=== PATIENT | female | born 1995 | race Caucasian/White ===

== ENCOUNTER → 2017-03-28 | Outpatient (CLI) | payer OTHER ==
[2016-03-22 21:45] VITALS: BP 147/97
== END ==
LOC: RAD 12:00
DX: I10 Essential (primary) hypertension (principal)

== ENCOUNTER → 2017-10-18 | Outpatient (CLI) | payer OTHER ==
[2016-03-22 21:45] VITALS: BP 147/97
[2017-10-18 15:08] LABS: HEMATOCRIT 40.8 % (37.0-47.0); HEMOGLOBIN 13.7 g/dL (12.5-16.0); MEAN PLATELET VOLUME 9.7 fl (7.4-10.4); RED BLOOD COUNT 4.81 M/mm3 (4.10-5.30); RED CELL DISTRIBUTION WIDTH 13.4 % (11.5-14.5); WHITE BLOOD COUNT 9.9 K/mm3 (4.8-10.8)
[2017-10-18 15:19] LABS: ALBUMIN 4.8 g/dL (3.5-5.0); BUN/CREATININE RATIO 18.5 (6.0-26.0); CALCIUM 9.4 mg/dL (8.4-10.2); POTASSIUM 3.9 mmol/L (3.6-5.0); TOTAL BILIRUBIN 0.2 mg/dL (0.2-1.3); TOTAL PROTEIN 8.3 g/dL (6.3-8.2)
== END ==
LOC: LAB 14:45
PROVIDERS: Family Medicine
DX: Z00.00 Encounter for general adult medical examination without abnormal findings (principal); E03.9 Hypothyroidism, unspecified

== ENCOUNTER → 2017-11-24 | Outpatient (CLI) | payer OTHER ==
[2016-03-22 21:45] VITALS: BP 147/97
[2017-11-24 16:22] LABS: URINE APPEARANCE HAZY; URINE COLOR ORANGE
== END ==
LOC: LAB 15:17
PROVIDERS: Nurse Practitioner Family
DX: R30.0 Dysuria (principal)

== ENCOUNTER → 2019-02-08 | Outpatient (CLI) | payer OTHER ==
[2016-03-22 21:45] VITALS: BP 147/97
== END ==
LOC: RAD 14:44
DX: S92.512A Displaced fracture of proximal phalanx of left lesser toe(s), initial encounter for closed fracture (principal)

== ENCOUNTER → 2019-03-23 | Outpatient (CLI) | payer OTHER ==
[2016-03-22 21:45] VITALS: BP 147/97
[2019-03-23 17:06] LABS: EOS # 0.4 (0.04-0.40); EOS % 3.1 % (1.0-5.0); HEMATOCRIT 39.4 % (37.0-47.0); HEMOGLOBIN 13.7 g/dL (12.5-16.0); MEAN CELL VOLUME 83 fl (78-100); MEAN CORPUSCULAR HEMOGLOBIN 29 pg (27-31); MEAN CORPUSCULAR HGB CONC 35 g/dL (33-37); MEAN PLATELET VOLUME 10.3 fl (7.4-10.4); MONO # 0.5 (0.20-0.80); NEU # 5.7 (1.40-6.50); PLATELET COUNT 314 K/mm3 (130-400); RED BLOOD COUNT 4.74 M/mm3 (4.10-5.30); RED CELL DISTRIBUTION WIDTH 12.8 % (11.5-14.5); WHITE BLOOD COUNT 11.4 K/mm3 (4.8-10.8)
[2019-03-23 17:07] LABS: LYMPH# 4.6 (1.50-4.00)
[2019-03-23 17:20] LABS: ALBUMIN 4.4 g/dL (3.5-5.0); POTASSIUM 3.3 mmol/L (3.5-5.1)
[2019-03-23 17:21] LABS: CALCIUM 10.5 mg/dL (8.3-10.5)
[2019-03-23 17:22] LABS: TOTAL PROTEIN 7.6 g/dL (6.4-8.3)
[2019-03-23 17:24] LABS: TOTAL BILIRUBIN 0.3 mg/dL (0.2-1.2)
== END ==
LOC: LAB 16:52
PROVIDERS: Family Medicine
DX: Z00.00 Encounter for general adult medical examination without abnormal findings (principal); E78.5 Hyperlipidemia, unspecified; R94.6 Abnormal results of thyroid function studies

== ENCOUNTER → 2020-01-02 | Outpatient (CLI) | payer OTHER ==
[2016-03-22 21:45] VITALS: BP 147/97
[2020-01-02 15:54] LABS: ALBUMIN 4.5 g/dL (3.5-5.0)
[2020-01-02 15:55] LABS: POTASSIUM 3.9 mmol/L (3.5-5.1)
[2020-01-02 15:56] LABS: CALCIUM 9.4 mg/dL (8.3-10.5)
[2020-01-02 15:57] LABS: TOTAL PROTEIN 7.9 g/dL (6.4-8.3)
[2020-01-02 15:59] LABS: TOTAL BILIRUBIN 0.3 mg/dL (0.2-1.2)
== END ==
LOC: LAB 15:25
PROVIDERS: Nurse Practitioner
DX: R53.83 Other fatigue (principal)

== ENCOUNTER 2020-05-05 14:00 | Outpatient (RCR) | payer OTHER ==
[2016-03-22 21:45] VITALS: BP 147/97
== END 2020-05-12 | disposition home or self-care (01) ==
LOC: PT
DX: M25.511 Pain in right shoulder (principal); M54.2 Cervicalgia

== ENCOUNTER 2020-05-13 14:01 | Outpatient (RCR) | payer OTHER ==
[2016-03-22 21:45] VITALS: BP 147/97
== END 2020-05-21 16:00 | disposition home or self-care (01) ==
LOC: PT 14:01
DX: M25.511 Pain in right shoulder (principal); M54.2 Cervicalgia

== ENCOUNTER → 2021-11-11 | Outpatient (CLI) | payer OTHER ==
[2021-11-11 15:43] LABS: ALBUMIN 4.6 g/dL (3.5-5.0); POTASSIUM 3.6 mmol/L (3.5-5.1)
[2021-11-11 15:45] LABS: CALCIUM 9.9 mg/dL (8.3-10.5)
[2021-11-11 15:46] LABS: TOTAL PROTEIN 7.7 g/dL (6.4-8.3)
[2021-11-11 15:48] LABS: TOTAL BILIRUBIN 0.3 mg/dL (0.2-1.2)
== END ==
LOC: LAB 14:55
PROVIDERS: Family Medicine
DX: Z33.1 Pregnant state, incidental (principal); K21.9 Gastro-esophageal reflux disease without esophagitis; R94.6 Abnormal results of thyroid function studies; I10 Essential (primary) hypertension; E66.9 Obesity, unspecified

== ENCOUNTER → 2021-11-13 | Outpatient (CLI) | payer OTHER | LOC: RAD 14:00 | DX: Z34.90 Encounter for supervision of normal pregnancy, unspecified, unspecified trimester (principal); Z3A.00 Weeks of gestation of pregnancy not specified ==

== ENCOUNTER → 2023-11-21 | Outpatient (CLI) | payer OTHER ==
[2023-11-21 12:44] LABS: BASO # 0.05 K/mm3 (0.02-0.10); EOS # 0.33 K/mm3 (0.04-0.40); EOS % 2.7 % (1.0-5.0); HEMATOCRIT 39.8 % (37.0-47.0); HEMOGLOBIN 13.4 g/dL (12.5-16.0); LYMPH# 3.69 K/mm3 (1.50-4.00); MEAN CELL VOLUME 86 fl (78-100); MEAN CORPUSCULAR HEMOGLOBIN 29 pg (27-31); MEAN CORPUSCULAR HGB CONC 34 g/dL (33-37); MEAN PLATELET VOLUME 9.9 fl (7.4-10.4); MONO # 0.41 K/mm3 (0.20-0.80); NEU # 7.66 K/mm3 (1.40-6.50); PLATELET COUNT 336 K/mm3 (130-400); RED BLOOD COUNT 4.61 M/mm3 (4.10-5.30); RED CELL DISTRIBUTION WIDTH 12.7 % (11.5-14.5); WHITE BLOOD COUNT 12.2 K/mm3 (4.8-10.8)
[2023-11-21 12:51] LABS: ALBUMIN 4.8 g/dL (3.5-5.0)
[2023-11-21 12:52] LABS: CALCIUM 10.3 mg/dL (8.3-10.5)
[2023-11-21 12:53] LABS: TOTAL PROTEIN 7.7 g/dL (6.4-8.3)
[2023-11-21 12:55] LABS: TOTAL BILIRUBIN 0.3 mg/dL (0.2-1.2)
== END ==
LOC: LAB 12:29
PROVIDERS: Family Medicine
DX: I10 Essential (primary) hypertension (principal); E78.5 Hyperlipidemia, unspecified; R73.9 Hyperglycemia, unspecified; R94.6 Abnormal results of thyroid function studies